=== PATIENT | female | born 2000 | race Caucasian/White ===

== ENCOUNTER 2024-09-19 07:44 | Emergency (ER) | payer OTHER, SELFPAY ==
[2024-09-19] VITALS (10 sets, daily range): BP systolic 87–118; BP diastolic 42–84; PULSE 66–68; BMI 23.5
[2024-09-19 08:14] LABS: Hematocrit 43.8 % (37.0-47.0); Mean Corp Hgb Conc. 34.2 g/dL (33.0-37.0); Mean Corpuscular Hgb 31.6 pg (27.0-31.0); Mean Corpuscular Volume 92.4 fL (81.0-99.0); Mean Platelet Volume 11.1 fL (7.4-10.4); Platelet Count 218 10^3/uL (130-400); Red Blood Cell Count 4.74 10^6/uL (4.20-5.40); Red Cell Dist. Width 11.8 % (11.5-14.5); White Blood Cell Count 4.1 10^3/uL (4.8-10.8)
[2024-09-19] MEDS: NSS 1000 IV (08:27)
[2024-09-19 08:36] LABS: % Basophils 1.2 % (0-2); % Eosinophils 3.2 % (0-6); % Immature Granulocytes 0.5 % (0-0.5); % Monocytes 8.6 % (1.7-9.3); % Neutrophils 32.5 % (42.2-75.2); Absolute Basophils 0.1 10^3/uL (0-0.2); Absolute Eosinophils 0.1 10^3/uL (0-0.7); Absolute Lymphocytes 2.2 10^3/uL (1.2-3.4); Absolute Monocytes 0.4 10^3/uL (0.1-0.6); Absolute Neutrophils 1.3 10^3/uL (1.4-6.5); Nucleated Red Blood Cells % 2.7 %
[2024-09-19 08:39] LABS: ALT (SGPT) 24 U/L (0-35); AST (SGOT) 36 U/L (14-36); Albumin 4.7 g/dl (3.5-5.0); Alkaline Phosphatase 49 U/L (38-126); Blood Urea Nitrogen 21 mg/dl (7-17); Calcium 9.4 mg/dl (8.4-10.2); Carbon Dioxide 24 mmol/L (22-30); Chloride 107 mmol/L (98-107); Estimated Creatinine Clearance 118 ml/min; Glucose 88 mg/dl (70-99); Potassium 4.8 mmol/L (3.5-5.1); Sodium 139 mmol/L (135-145); Total Bilirubin 0.8 mg/dl (0.2-1.3); Total Protein 7.5 g/dl (6.3-8.2); eGFR > 60.00
[2024-09-19 08:46] LABS: HCG, Serum Qualitative Screen Negative
--- NOTE | 2024-09-19 08:57 | ED.GENMED ---
History of Present Illness
General
Chief Complaint: Fainting/Passed Out
Source: patient
Exam Limitations: none
Time Seen by Provider: 09/19/24 07:54
Nursing documentation reviewed up to this point in time: agreed with
History of Present Illness
History of Present Illness:
Patient is a 24 yr old female who was brought by EMS. Patient reports she remembers waking up around 6:45 AM she sat up and looked at her phone and then remembers waking up feeling confused and realized she urinated on herself. She felt weak
dizzy a little confused she tried to walk to the bathroom to get a shower but had to sit in the shower because she felt very weak and lightheaded. She tried to herself to the refrigerator to get something but she continued to feel very weak and
call family to call EMS.
Patient presents here awake alert she feels very weak and tired she does complain of neck pain. She reports neck is very sore when she moves the neck. She denies any recent illness fever chills. She does report she has had history of syncope in
the past but typically will know when she is get a pass out and get symptoms prior to doing so.
She denies any drug use. She is presently finishing up her period.
Review of Systems
Review of Systems
Allergies reviewed?: Yes
All Other Systems: ROS reviewed and negative except as documented in HPI and ROS
Constitutional: Reports fatigue; Denies fever or chills
Respiratory: Reports no symptoms
Cardiac: Reports no symptoms
ABD/GI: Reports no symptoms
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
Musculoskeletal: Reports neck pain
Skin: Reports no symptoms
Neurological: Reports no symptoms
Psychiatric: Reports no symptoms
Phy Exam
General Physical Exam
General Presentation: well appearing
General age: appears stated age
General Skin: warm and dry
General Habitus: normal
General Mental: alert
General Hydration: dry mucous membranes
Cardiovascular Exam
Cardiovascular Exam: regular rate/rhythm, no murmur and normal peripheral pulses
Pulmonary Exam
Pulmonary Exam: lungs clear and no respiratory distress
Neurological Exam
Neurological Exam: alert and oriented x3
Musculoskeletal Exam
Musculoskeletal Exam: other (Patient with discomfort with movement of neck)
Skin Exam
Skin Exam: normal color and warm/dry
Course
Orders/Labs/Results
Orders:
Orders
09/19/24 07:50
EKG [Electrocardiogram (*1)] Urgent
Reason for Study: Syncope
EKG- Treatment ONCE
09/19/24 08:01
CBC/With Diff [Complete Blood Count/With Diff] Urgent
CMP [Comprehensive Metabolic Panel] Urgent
HCG, Serum Qualitative Screen Urgent
Comment: ADD ON
09/19/24 08:10
CT Head W/o Iv Contrast Urgent
Comment:
Reason For Exam: seizure versus syncope
09/19/24 08:12
Add On- LAB Urgent
Tests Added?: serum hcg qualitative
Orthostatic VS- Treatment ONCE
0.9% Sodium Chloride 1000 ml [Nss] 1,000 ml IV BOLUS
09/19/24 10:21
Acetaminophen [Tylenol] 650 mg PO NOW STA
Ketorolac [Toradol] 15 mg IV NOW STA
09/19/24 10:50
EEG Routine Urgent
Reason for Exam: ? Status epilepticus
Abnormal Lab Results
09/19/24
08:01
WBC 4.1 L 10^3/uL
(4.8-10.8)
MCH 31.6 H pg
(27.0-31.0)
MPV 11.1 H fL
(7.4-10.4)
Absolute Neuts (auto) 1.3 L 10^3/uL
(1.4-6.5)
Neutrophils % 32.5 L %
(42.2-75.2)
Lymphocytes % 54.0 H %
(20.5-51.1)
BUN 21 H mg/dl
(7-17)
09/19/24 08:01
09/19/24 08:01
Vital Signs
Initial and Last Documented VS:
Initial Vital Signs
Temp Pulse Resp BP Pulse Ox
97.5 F 96 18 117/84 99
09/19/24 07:46 09/19/24 07:46 09/19/24 07:46 09/19/24 07:46 09/19/24 07:46
Last Documented Vital Signs
Temp Pulse Resp BP Pulse Ox
97.5 F 65 23 106/61 100
09/19/24 07:46 09/19/24 12:48 09/19/24 09:14 09/19/24 12:56 09/19/24 08:45
Anatomy And Physiology Instructor consulted with Physician
Anatomy And Physiology Instructor consulted with physician?: Yes (Evangelist )
MDM/Problems Addressed
MDM/Problems Addressed:
Patient is a 24-year-old female who presented to the ER for evaluation. As documented she was sleeping woke up to get her phone and then recalls waking up incontinent to urine. She felt very weak as she was walking into the bathroom she presented
awake alert she reports she did feel little confused after the incident however was able to give full history when she came to the ER. She has no prior history of seizures. She had no oral mouth abrasions or lacerations.
She has no obvious head injury on exam she presents awake alert, her labs unremarkable. Seizure considered with questionable seizure CAT scan ordered and negative.
I did speak with neurologist who came to evaluate patient and EEG was done which was negative. Dr. Jefferson does not feel that this is a seizure patient may go home with outpatient follow-up with neurology as discussed.
Patient is very well-appearing here in the ER with a normal neurologic exam.
*Radiology
Radiology exam reviewed: radiology read reviewed
*Pulse Oximetry
Patient hypoxic: no
*EKG
Interpreted by ED Provider?: Yes
Heart Rate: 56
Rate: bradycardiac
Rhythm: sinus
Ischemia: no ischemia
*Critical Care Note
Total Time (30-74mins, 75-104mins- exclusive of procedures): Not Applicable
Patient Management
Discussion with other providers: Housing Grant Analyst (DR Jefferson , neurology )
ED Attending Note
-
Portions of this chart may have been created with voice recognition software.� Occasional wrong word or��sound alike� substitutions may have occurred due to the inherent limitations of voice recognition software.
Discharge Plan
Departure
Patient Disposition: Home (Routine Discharge)
Date of Disposition: 09/19/24
Time of Disposition: 13:48
Patient with high blood pressure during this ER visit?: No
Condition: Fair
Covid-19: Not Applicable
Discharge Problem:
Syncope
Instructions: Syncope (Fainting) (DC)
Referrals:
Peterson Jefferson MD [Active, Neurology]
Catrina Lovelace DO [Family Provider, Family Practice]
Activity Restrictions/Additional Instructions:
As discussed this is likely that you passed out however we did consider possible seizure however your EEG was normal and your evaluated by neurologist. Stay well-hydrated you may take Tylenol or Motrin as needed for neck pain. Follow-up with
family doctor in the next several days and neurology as discussed. Return if any worsening of symptoms.
Interventions
Interventions:
*Risk Screen - Suicide Last Done: 09/19/24 08:04
*General Assessment Last Done: 09/19/24 08:04
*Neglect/Abuse Screening Last Done: 09/19/24 08:04
*ED- Fall Risk Assessment Last Done: 09/19/24 07:53
ED- Cardiac Assessment Last Done: 09/19/24 08:04
ED- Neurological Assessment Last Done: 09/19/24 07:52
Discharge Date and Time
Print Language: GREENLANDIC
[2024-09-19] MEDS: TORADOL 15 MG IV (10:25)
[2024-09-19] MEDS: TYLENOL 650 MG PO (10:26)
--- NOTE | 2024-09-19 12:36 | EEG.RPT ---
Electroencephalogram Report
Recording
Date of EE09/19/24
Type of EEG: Routine
Length of EEG recordin mins
Done with Video Recording: Yes
Patient Status: Emergency Room
Recording Conditions: Awake, Drowsy and Asleep
Hyperventilation Performed: Yes
Photic Stimulation Performed: Yes
Report
Clinical Background:�24 year old woman woke up incontinent of urine, concern for seizure
Introduction: A routine bedside EEG was done using [employer] 10-20 electrode placement protocol.
Background: In the most alert state, the PDR is 11-12 Hz in frequency with normal amplitude. There is spontaneous variability and reactivity.�prominent wicket and mu waves during drowsiness.
Sleep: Stage I sleep is seen.�
Focal/epileptiform: There were no focal or epileptiform discharges. No clinical or electrographic seizures occurred during this recording.
Hyperventilation: resulted in symmetric slowing
Photic stimulation: resulted in normal driving response. There was no photo myogenic or photoparoxysmal response.�
Impression: Normal EEG
--- NOTE | 2024-09-19 19:30 | CON.NEURO ---
Neuro Assessment/Plan
Assessment
24 year old woman with episode of enuresis, history no features to suggest seizures
routine EEG today was normal
doubt that this was seizures;
even if this was a first time seizure with a normal EEG risk of further event would be 20%
if symptoms recur, consider sleep deprived EEG or ambulatory EEG to capture deeper stages of sleep
she can drive
d/w patient/family
Consultation
Order
Date of Consultation: 09/19/24
Requesting Provider: Yee Pimentel
Reason for Consult: loss of consciousness
Subjective/Objective
Subjective Data
Date of Service: September 19, 2024
24 year old woman, history of vasovagal syncope. She woke up and looked at her phone 6:45 am; either lost consciousness or feel asleep again and woke up incontinent of urine. when she awoke no tongue bite, no confusion, no preceding aura/abnormal
movements. No prior episodes of enuresis.
Objective Data
Vital Signs
Temp Pulse Resp BP Pulse Ox
36.4 C 71 17 98/51 100
09/19/24 07:46 09/19/24 13:45 09/19/24 13:45 09/19/24 13:00 09/19/24 08:45
Lab Results
09/19/24 08:01
09/19/24 08:01
Sodium 139 mmol/L (135-145) 09/19/24 08:01
Potassium 4.8 mmol/L (3.5-5.1) 09/19/24 08:01
BUN 21 mg/dl (7-17) H 09/19/24 08:01
Glucose 88 mg/dl (70-99) 09/19/24 08:01
Calcium 9.4 mg/dl (8.4-10.2) 09/19/24 08:01
Patient Allergies
Penicillins Allergy (Mild, Verified 09/19/24 07:52)
Unknown
Physical Exam
-
AAOx3, speech clear, language intact
VFF, EOMI, face symmetric
full strength b/l UE/LE, no drift
Sensation intact touch/pin/vib
== END 2024-09-19 13:59 | disposition home or self-care (01) ==
LOC: EMR 07:44
PROVIDERS: EMERGENCY PHYSICIAN Emergency Medicine; FAMILY PHYSICIAN Family Medicine; OTHER PHYSICIAN Psychiatry & Neurology Clinical Neurophysiology
DX: R55 Syncope and collapse (principal); R53.1 Weakness; M54.2 Cervicalgia; R32 Unspecified urinary incontinence; Z88.0 Allergy status to penicillin
CPT/HCPCS: 99284; 96374; 96361; 70450; 80053; 84703; 85025; 93005; 95816